=== PATIENT | female | born 1960 | race Caucasian/White ===

== ENCOUNTER 2022-07-13 07:57 | Outpatient (CLI) | payer BC, SELFPAY ==
[2022-07-13 11:23] LABS: Albumin* 4.5 g/dL (3.3-5.0)
[2022-07-13 11:24] LABS: Chloride* 106 mmol/L (96-114); Potassium* 4.6 mmol/L (3.6-5.1); Sodium* 139 mmol/L (135-149)
[2022-07-13 11:26] LABS: Cholesterol* 198 mg/dL (90-199); Creatinine* 1.1 mg/dL (0.5-1.5); Estimated Glomerular Filt Rate 56 ml/min
[2022-07-13 11:27] LABS: Alanine Aminotransferase* 28 U/L (4-35); Alkaline Phosphatase* 80 U/L (40-150); Aspartate Amino Transferase* 42 U/L (12-35); Bilirubin Total* 0.3 mg/dL (0.1-1.5); Blood Urea Nitrogen* 17 mg/dL (7-30); Carbon Dioxide* 27 mmol/L (20-32); Glucose* 101 mg/dL (60-115); Total Protein* 7.2 g/dL (6.0-8.3); Triglycerides* 295 mg/dL (40-149)
[2022-07-13 11:28] LABS: Calcium* 9.1 mg/dL (8.4-10.6); HDL Cholesterol* 33 mg/dL (>=50); LDL Cholesterol Calculated 106 mg/dL (<100)
== END 2022-07-13 07:58 | disposition home or self-care (01) ==
PROVIDERS: PCP Internal Medicine; Visit Provider Internal Medicine
DX: Z01.419 Encounter for gynecological examination (general) (routine) without abnormal findings (principal); E78.5 Hyperlipidemia, unspecified; I10 Essential (primary) hypertension; K76.0 Fatty (change of) liver, not elsewhere classified
CPT/HCPCS: 80053; 80061

== ENCOUNTER 2022-07-24 07:33 | Outpatient (CLI) | payer BC, SELFPAY ==
--- NOTE | 2022-07-24 07:45 | CRLHL7_ITS ---
For Patients: As a result of the Cures Act, medical imaging exams and procedure reports are released immediately into your electronic medical record. You may view this report before your referring provider. If you have questions, please contact your health care provider. LEFT DIAGNOSTIC DIGITAL MAMMOGRAM WITH COMPUTER-AIDED DETECTION AND TOMOSYNTHESIS LEFT BREAST ULTRASOUND CLINICAL HISTORY: LEFT breast nipple discharge. COMPARISON: 12/30/2021, 11/01/2020, 03/18/2019, 02/12/2018. TECHNIQUE: Digital LEFT mammogram in two projections with tomosynthesis and computer-aided detection. Real-time ultrasound imaging of LEFT breast with imaging documentation. BREAST COMPOSITION: There are scattered areas of fibroglandular density. FINDINGS: 3D CC and 3D MLO mammograms LEFT breast submitted. Normal fibroglandular tissue. No suspicious mass or architectural distortion. Benign calcifications. No adenopathy. Targeted LEFT breast ultrasound performed in the retroareolar region. Multiduct ectasia noted without intraductal nodule. No suspicious findings. IMPRESSION: Benign multiduct ectasia LEFT breast retroareolar tissues. No evidence of malignancy or papilloma. RECOMMENDATIONS: Clinical follow-up. Annual bilateral screening mammography. Results and recommendations discussed with the patient. BI-RADS Category 2. Benign A lay language report of this examination will be provided to the patient. Dictated by Will Goldstein MD @ 07/24/2022 9:47:05 AM CRL:[email or web address] DECKER/Dictated by: Will Goldstein MD @ 07/24/2022 9:47:00 AM (Electronically Signed)
--- NOTE | 2022-07-24 08:15 | CRLHL7_ITS ---
For Patients: As a result of the Century Cures Act, medical imaging exams and procedure reports are released immediately into your electronic medical record. You may view this report before your referring provider. If you have questions, please contact your health care provider. PLEASE SEE LEFT DIAGNOSTIC MAMMOGRAM OF SAME DAY FOR COMBINED REPORT. CRL:[email or web address] RD/Dictated by: Will Goldstein MD @ 07/24/2022 9:47:00 AM (Electronically Signed)
== END 2022-07-24 07:34 | disposition home or self-care (01) ==
LOC: MAMMO 07:33
PROVIDERS: PCP Internal Medicine; Visit Provider Internal Medicine
DX: N64.52 Nipple discharge (principal)
CPT/HCPCS: 76642; 77065; G0279

== ENCOUNTER 2023-07-26 07:58 | Outpatient (CLI) | payer BC, SELFPAY ==
--- OUTSIDE RECORDS SUMMARY | 2023-07-26 15:05 | XMS_ITS | Continuity of Care Document ---
Author Name Unknown Organization [facility] Address [address] [place] [address] Phone Care Team Providers Care Painter And Body Work Name Role Phone Mike Reyna MD Unavailable Unavailable Allergies, Adverse Reactions, Alerts Substance Reaction Status Criticality POTASSIUM CLAVULANATE Itching Active No Inf ormation AMOXICILLIN TRIHYDRATE Itching Active No In formation Medications Medication Instructions Dosage Effective Dates (start - stop) Status Comments AMLODIPINE BESILATE (unknown strength) Not Available - Active ATENOLOL (unknown strength) Not Available - Active LISINOPRIL (unknown strength) Not Available - Active OMEPRAZOLE (unknown strength) Not Available - Active CITALOPRAM HBR (unknown strength) Not Available - Active TRAZODONE HCL (unknown strength) Not Available - Active Procedures Procedure Date Postop Followup Visit Cerv Artifical Disk Replacement 015 Office/Outpatient Visit,Est, Mod 2014 Office/Outpatient Visit,[facility], Mod 2014 Advance Directives Directive Yes / No Effective Date File Name No Information Encounters Encounter Description Practice Location Reason(s) For Visit Diagnoses Date Provider Providers Copied on Encounter [facility], [address], [place], [id number] , [place] tel: [phone] [facility] No Information [address] [facility], [address], [place], [id number] , [place]. tel: [phone] [facility], [address], [place], [id number] , [place] tel: [phone] [facility] [place] OverweightArthrod esis status 6 Maribell Mckeon. [facility], [address], [address], [place], [address] , [place]. tel: [phone] Referring Provider: Mikal Vasquez, [facility] [address], [address], [place], [address] . tel:[phone] [facility], [address], [place], [address] , [place] tel: [phone] [facility] No Information 5 Maribell Mckeon. [facility] [place], [address], [address], [place], [place], [id number] , [place]. tel: [phone] Referring Provider: Mikal Vasquez, [facility] [place] [address] [place], [address], [place], [address] . tel:[phone] Office/Outpa tient Visit,Est, Mod [facility], [address], [place], [address] , [place] tel: [phone] [facility] Other cervical disc displacement, mid-cervical region Maribell Mckeon. [facility] [place], [address], [address], [place], [address] , [place]. tel: [phone] Referring Provider: Mikal Vasquez, [facility] [address], [address], [place], [address] . tel:[phone] Office/Outpa tient Visit,New, Mod [facility], [address], [place], [address] , [place] tel: [phone] [facility] Annular fissure of cervical discCervical degenerative disc diseaseSpinal stenosis of cervical region 5 Keshia Ren. [facility] [place], [address], [address], [place], [address] , [place]. tel: [phone] Referring Provider: Mikal Vasquez, [facility] [address] [place] [address], [address], [place], [address] . tel:[phone] Family History Family Member Type Diagnosis Age At Onset Problem (finding) Problem (finding) Problem (finding) Problem (finding) Payers Payer name Insurance type Covered democrat ID Authorrobert anaya(s) [facility] [id number] [facility] [id number] Social History Type Description Quantity Date Captured Comments Sex Female Smoking Status No Information Chief Complaint And Reason For Visit No Information Reason For Referral Reason For Referral No Information History Of Present Illness Encounter Date Complaint History Of Prese nt Illness No Information Functional Status Date Functional Assessmen t No Information Instructions Date Instruction Additional Infor mation Weight Management Education Rela mena to Overweight Weight management: I nstructed to return to General Practitioner timeframe: 1 Month. Related to Overweight Assessments Type Assessment Date No Information Patient Care Teams Name Effective Dates (start - stop) Status Members No Information
== END 2023-07-26 07:59 | disposition home or self-care (01) ==
LOC: NFLDREF 15:03
PROVIDERS: PCP Internal Medicine; Referring Provider Internal Medicine; Visit Provider Internal Medicine
DX: E78.5 Hyperlipidemia, unspecified (principal); I10 Essential (primary) hypertension; R73.03 Prediabetes
CPT/HCPCS: 80053; 80061

== ENCOUNTER 2023-10-17 08:10 | Outpatient (CLI) | payer BC, OTHER, SELFPAY ==
--- OUTSIDE RECORDS SUMMARY | 2023-10-17 08:14 | XMS_ITS | Continuity of Care Document ---
Author Name Unknown Organization [facility] Address [address] [place] [address] Phone Care Team Providers Care Spiral Runner Name Role Phone Mike Reyna MD Unavailable [...] Replacement 015 Office/Outpatient Visit,Est, Mod 2014 Office/Outpatient Visit,[facility], Mod 2014 Advance Directives Directive Yes / No Effective Date File Name No Information Encounters Encounter Description Practice Location Reason(s) For Visit Diagnoses Date Provider Providers Copied on Encounter [facility], [address], [place], [id number] , [place] tel: [phone] [facility] No Information 7 Maribell Mckeon. [facility], [address], [address], [place], [id number] , [place]. tel: [phone] [facility], [address], [place], [id number] , [place] tel: [phone] [facility] [place] OverweightArthrod esis status 6 Maribell Mckeon. [facility], [address], [address], [place], [address] , [place]. tel: [phone] Referring Provider: Mikal Vasquez, [facility] [address], [address], [place], [address] . tel:[phone] [facility], [address], [place], [id number] , [place] tel: [phone] [facility] No Information 5 Maribell Mckeon. [facility] [place], [address], [address], [place], [address] , [place]. tel: [phone] Referring Provider: Mikal Vasquez, [facility] [place] [address] [place], [address], [place], [address] . tel:[phone] Office/Outpa tient Visit,Est, Mod [facility], [address], [place], [address] , [place] tel: [phone] [facility] Other cervical disc displacement, mid-cervical region Maribell Mckeon. [facility] [place], [address], [address], [place], [address] , [place]. tel: [phone] Referring Provider: Mikal Vasquez, [facility] [address], [address], [place], [address] . tel:[phone] Office/Outpa tient Visit,New, Mod [facility], [address], [place], [address] , [place] tel: [phone] [facility] Annular fissure of cervical discCervical degenerative disc diseaseSpinal stenosis of cervical region 5 Keshia Ren. [facility] [place], [address], [address], [place], [address] , [place]. tel: [phone] Referring Provider: Mikal Vasquez, [facility] [address] [place] [address], [address], [place], [address] . tel:[phone] Family History Family Member Type Diagnosis Age At Onset Problem (finding) Problem (finding) Problem (finding) Problem (finding) Payers Payer name Insurance type Covered republican ID Authorrobert anaya(s) [facility] [id number] [facility] [id number] Social History Type Description Quantity Date Captured [...]
--- OUTSIDE RECORDS SUMMARY | 2023-10-17 08:14 | XMS_ITS | Clinical Summary ---
Author Name Unknown Organization [facility] Address [place], [place] [address] Care Team Providers Care Sap Technical Architect Name Role Phone Adelaide Hebert MD Primary Care Provider [phone] Allergies Active Allergy Reactions Criticality Noted Date Comments Amoxicillin-Pot Clavulanate Hives,Itching Low 02/22/2007 Clavulanic Acid Itching Low 07/15/2015 Iodinated Contrast Media Hives,Erythema High 007 Difficulty Breathing, Sneezing Medications Medication Sig Dispensed Refills Start Date End Date Status ALPRAZolam (XANAX) 0.25 mg tabletIndications:An xiety state, unspecified Take by mouth. Take one or two tablets by mouth as needed. 30 tablet 6 05/10/2010 Active furosemide (LASIX) 20 mg tabletIndications:Ed huan Take 0.5-1 tablets by mouth once daily if needed for Other (Specify). Pharmacy- Patient does not need today. 30 tablet 0 05/10/2010 Active lisinopril (PRINIVIL; ZESTRIL) 40 mg tabletIndications:Un specified essential hypertension Take 1 tablet by mouth once daily. 90 tablet 3 05/10/2010 Active omeprazole (PRILOSEC) 20 mg capsuleIndications:R eflux esophagitis,Unspecif ied essential hypertension Take 1 capsule by mouth 2 times daily before meals. 180 capsule 3 05/10/2010 Active citalopram (CELEXA) 40 mg tabletIndications:An xiety state, unspecified,Unspecif ied essential hypertension Take 1 tablet by mouth once daily. Pharmacy- Patient does not need today. 135 tablet 3 12/27/2010 Active traZODone (DESYREL) 50 mg tabletIndications:sl eep Take 1 tablet by mouth at bedtime. Indications: sleep 30 tablet 0 04/13/2011 Active traMADol (ULTRAM) 50 mg tablet Take 50-100 mg by mouth every 6 hours if needed for Pain. 0 Active amLODIPine (NORVASC) 10 mg tablet Take 10 mg by mouth once daily. 0 Active atenolol (TENORMIN) 12.5 mg as half tablet Take 12.5 mg by mouth once daily. 0 Active MULTIVITAMIN (MULTIPLE VITAMIN ORAL) Take 1 Tab by mouth once daily. 0 Active omega-3 fatty acids (FISH OIL) cap Take 1,000 mg by mouth once daily. 0 Active oxyCODONE (ROXICODONE) 5 mg immediate release tabletIndications:HN P (herniated nucleus pulposus), cervical Take 1-2 tablets by mouth every 4 hours if needed for Pain (For moderate pain). 100 tablet 0 07/17/2015 Active diazepam (VALIUM) 2 mg tabletIndications:HN P (herniated nucleus pulposus), cervical Take 1 tablet by mouth every 6 hours if needed for Muscle Spasm. 20 tablet 0 07/17/2015 Active sennosides-docusate, 8.6-50 mg, (SENOKOT S) 8.6-50 mg tabletIndications:HN P (herniated nucleus pulposus), cervical Take 2 tablets by mouth 2 times daily. 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 Migraine, unspecified, witho ut mention of intractable migraine without mention of status migrainosus 01/01/2007 Anxiety state, unspecified 01/01/2007 Reflux esophagitis 01/01/2007 Unspecified essential hypertension 01/01/2007 Immunizations Name Administration Dates Next Due Influenza, IIV3 (Age >=3 years) 06/06/2010,06/23 Td (Age >=7 Years) 11/17/1999 Family History Medical History Relation Name Comments Cancer Brother d 45 yo lung CA Hypertension Brother Diabetes Father b 1927 Hypertension Father Hypertension Mother b 1930 Stroke Mother 71 yo Relation Name Status Comments Brother Father Mother Social History Tobacco Use Types Packs/Day Years Used Date Smoking Tobacco: Never Smokeless Tobacco: Never Tobacco Cessation:Counseling Given: Yes Alcohol Use Standard Drinks/Week Comments No 0 (1 standard drink = 0.6 oz pur e alcohol) Social Connections Answer Date Recorded Frequency of Communication with Friends and Fami ly Not on file 08/27/2021 Financial Resource Strain Answer Date R ecorded Difficulty of Paying Living Expenses Not on file 08/27/2021 Difficulty of Paying Living Expenses Not on file 08/27/2021 Sex and Gender Information Value Date Recorded Sex Assigned at Not on file Gender Identity Not on file Sexual Orientation Not on file Obstetrics History Para Term AB IAB SAB Ectopic Multiple Livin g Live Births 3 3 Date Outcome GA Total Labor Labor/2nd/3rd Weight Sex Delivery Anes PTL Demetria A1 A5 Name Cl in Last Filed Vital Signs Vital Sign Reading Time Taken Comments Blood Pressure 110/72 07/17/2015 7:41 AM CONVEYOR TENDER Pulse 99 07/17/2015 7:41 AM CONVEYOR TENDER Temperature 36.8 ??C (98.3 ??F) 07/17/2015 7:41 AM CS T Respiratory Rate 16 07/17/2015 7:41 AM CONVEYOR TENDER Oxygen Saturation 92% 07/17/2015 7:41 AM CONVEYOR TENDER Inhaled Oxygen Concentration - - Weight 78.3 kg (172 lb 9.9 oz) 07/16/2015 8:28 A M CONVEYOR TENDER Height 159 cm (5' 2.6) 07/16/2015 8:28 AM CONVEYOR TENDER Body Mass Index 30.97 07/16/2015 8:28 AM CONVEYOR TENDER Plan of Treatment Health Maintenance Due Date Last Done Comments COVID-19 vaccine series (#1) 1959 Tdap 1970 Depression screening for age 12+ 1971 HIV for age 15-65 1974 BMI (ht and wt on same day) for age 18+ 1977 Hepatitis C screening for age 18-79 1977 Zoster (shingles) series for age 50+ (1 of 2) 2009 Tetanus booster 11/16/2009 11/17/1999, 11/17/1999 Mammogram for age 45-75 05/10/2011 05/10/20 10, 04/08/2009, 02/19/2007 Lipids for age 45-75 11/30/2015 11/29/2010, 05/10/2010, 05/10/2009, Additional history exists Colonoscopy through age 75 12/31/2017 01/01/2008 Influenza for age 50-64 04/27/2023 06/06/2010, 06/23 Pap test for age 21-65 07/18/2025 , 07/18/2022, 02/04/2018, Additional history exists Pneumococcal series for age 6-64 Aged Out No longer eligible based on patient's age to complete this topic Medical Devices Implanted Type Area Hazard Waste Handler Device Identifier Shelf Expiration Date Model / Serial / Lot Disc Cerv 15mm Jose [facility] - [id number] Implanted:Qty: 1 on 07/16/2015 by Mike Reyna MD at [employer] N/A: Spine [employer] Spine/[employer]tho [id number] / / [id number] Cutr Cerv 15mm Jose - [id number] Implanted:Qty: 1 on 07/16/2015 by Mike Reyna MD at [employer] N/A: Spine [employer] Spine/[employer]tho [id number] / / [id number] Advance Directives Latest Code Status on File Code Status Date Activated Date Inactivated Comments Full Code 07/16/2015 2:32 PM 07/17/2015 4:03 PM Code Status History Code Status Date Activated Date Inactivated Comments Full Code 07/16/2015 8:09 AM 07/16/2015 2:32 PM Care Teams Sap Technical Architect Relationship Specialty Start Date End Date Adelaide Hebert MD [address] [place] [address] PCP - General Internal Medicine 07/14/15
--- NOTE | 2023-10-17 08:15 | MM_ITS ---
Patient: ENRIQUE TAYLOR Facility:?[facility] Patient ID:?[id number] Site Patient ID:?[id number]. Site :?1960 Study:?XRay-Breast Bilateral 3D W/CAD-10/17/2023 8:34:26 AM Ordering Physician:Adelaide Brewster Final Report: BILATERAL SCREENING MAMMOGRAM WITH COMPUTER-AIDED DETECTION AND TOMOSYNTHESIS TECHNIQUE: CC and MLO views were obtained. These mammographic images have been obtained using full-field digital technique. These mammographic images were interpreted with the benefit of computer-aided detection. Breast Tomosynthesis was used in this interpretation. COMPARISON FILM: 07/24/22, 12/30/21, 11/01/20. FINDINGS: There are scattered areas of fibroglandular density. IMPRESSION: There is no radiographic evidence for malignancy. ASSESSMENT: BI-RADS Category 2: Benign RECOMMENDATION: Routine screening mammogram in 1 year. A lay language report of this examination will be provided to the patient. Norman Scott M.D. Diagnostic/Nuclear Medicine Radiologist [email or web address] CYNTHIA/toya R& Transcribed: 2:04 pm SP/Dictated by: Norman Scott MD @ 10/18/2023 10:41:00 AM Signed by:Carin Scott MD @10/18/2023 3:31:33 PM (Electronic Signature)
== END 2023-10-17 08:11 | disposition home or self-care (01) ==
LOC: MAMMO 08:11
PROVIDERS: PCP Internal Medicine; Visit Provider Internal Medicine
DX: Z12.31 Encounter for screening mammogram for malignant neoplasm of breast (principal)
CPT/HCPCS: 77063; 77067

== ENCOUNTER 2024-07-30 07:39 | Outpatient (CLI) | payer MEDICARE, BC, SELFPAY ==
--- OUTSIDE RECORDS SUMMARY | 2024-08-03 08:34 | XMS_ITS | Continuity of Care Document ---
Author Organization [facility] Address [address] [place] [address] Phone Care Team Providers Care Pharmacist'S Aide Name Role Phone Mike Reyna MD Unavailable Unavailable Allergies, Adverse Reactions, Alerts Substance Reaction Status Criticality POTASSIUM CLAVULANATE Itching Active No Inf ormation AMOXICILLIN TRIHYDRATE Itching Active No In formation Medications Medication Instructions Dosage Effective Dates (start - stop) Status Comments TRAZODONE HCL (unknown strength) Not Available - Active CITALOPRAM HBR (unknown strength) Not Available - Active OMEPRAZOLE (unknown strength) Not Available - Active LISINOPRIL (unknown strength) Not Available - Active ATENOLOL (unknown strength) Not Available - Active AMLODIPINE BESILATE (unknown strength) Not Available - Active Procedures Procedure Date Postop Followup Visit Cerv Artifical Disk Replacement 015 Office/Outpatient Visit,Est, Mod 2014 Office/Outpatient Visit,New, Mod 2014 Advance Directives Directive Yes / No Effective Date File Name No Information Encounters Encounter Description Practice Location Reason(s) For Visit Diagnoses Date Provider Providers Copied on Encounter [facility], [address], [place], [id number] , [place] tel: [phone] [facility] No Information 7 Maribell Mckeon. [facility], [address], [address], [place], [id number] , [place]. tel: [phone] [facility], [address], [place], [id number] , [place] tel:[phone] [facility] [place] OverweightArthrod esis status Maribell Mckeon. [facility], [address], [address], [place], [place], [address] , [place]. tel: [phone] Referring Provider: Mikal Vasquez, [facility] [address], [address], [place], [address] . tel:[phone] [facility], [address], [place], [address] , [place] tel: [phone] [facility] No Information Maribell Mckeon. [facility] [place], [address], [address], [place], [place], [address] , [place]. tel: [phone] Referring Provider: Mikal Vasquez, [facility] [address] [place], [address], [place], [address] . tel:[phone] Office/Outpa tient Visit,Est, Mod [facility], [address], [place], [address] , [place] tel: [phone] [facility] Other cervical disc displacement, mid-cervical region Maribell Mckeon. [facility], [address], [address], [place], [place], [address] , [place]. tel: [phone] Referring Provider: Mikal Vasquez, [facility] [address], [place], [address] . tel:[phone] Office/Outpa tient Visit,New, Mod [facility], [address], [place], [address] , [place] tel: [phone] [facility] Annular fissure of cervical discCervical degenerative disc diseaseSpinal stenosis of cervical region 5 Keshia Ren. [facility] [place], [address], [address], [place], [address] , [place]. tel: [phone] Referring Provider: iMkal Vasquez, [facility] [address] [place] [address], [address], [place], [address] . tel:[phone] Family History Family Member Type Diagnosis Age At Onset Problem (finding) Problem (finding) Problem (finding) Problem (finding) Payers Payer name Insurance type Covered constitution party ID Hector anaya(s) [facility] [id number] [facility] [id number] Social History Type Description Quantity Date Captured Comments Sex Female Smoking Status No Information Chief Complaint And Reason For Visit No Information Reason For Referral Reason For Referral No Information History Of Present Illness Encounter Date Complaint History Of Prese nt Illness No Information Functional Status Date Functional Assessmen t No Information Instructions Date Instruction Additional Infor candido Weight management: I nstructed to return to General Practitioner timeframe: 1 Month. Related to Overweight Weight Management Education Rela mena to Overweight Assessments Type Assessment Date No Information Patient Care Teams Name Effective Dates (start - stop) Status Members No Information
--- OUTSIDE RECORDS SUMMARY | 2024-08-03 08:34 | XMS_ITS | Clinical Summary ---
Author Organization [facility] Address [place], [place] [address] Care Team Providers Care Voice Systems Engineer Name Role Phone Adelaide Hebert MD Primary Care Provider [phone] Allergies Active Allergy Reactions Criticality Noted Date Comments Amoxicillin-Pot Clavulanate Hives,Itching Low 02/22/2007 Clavulanic Acid Itching Low 07/15/2015 Iodinated Contrast Media Hives,Erythema High 007 Difficulty Breathing, Sneezing Medications ALPRAZolam (XANAX) 0.25 mg tabletIndications :Anxiety state, unspecified Take by mouth. Take one or two tablets by mouth as needed. 30 tablet 6 0 Active furosemide (LASIX) 20 mg tabletIndications :Edema Take 0.5-1 tablets by mouth once daily if needed for Other (Specify). Pharmacy- Patient does not need today. 30 tablet 0 0 Active lisinopril (PRINIVIL; ZESTRIL) 40 mg tabletIndications :Unspecified essential hypertension Take 1 tablet by mouth once daily. 90 tablet 3 0 Active omeprazole (PRILOSEC) 20 mg capsuleIndication s:Reflux esophagitis,Unspe cified essential hypertension Take 1 capsule by mouth 2 times daily before meals. 180 capsule 3 0 Active citalopram (CELEXA) 40 mg tabletIndications :Anxiety state, unspecified,Unspe cified essential hypertension Take 1 tablet by mouth once daily. Pharmacy- Patient does not need today. 135 tablet 3 1 Active traZODone (DESYREL) 50 mg tabletIndications :sleep Take 1 tablet by mouth at bedtime. Indications: sleep 30 tablet 0 1 Active traMADol (ULTRAM) 50 mg tablet Take 50-100 mg by mouth every 6 hours if needed for Pain. Active amLODIPine (NORVASC) 10 mg tablet Take 10 mg by mouth once daily. Active atenolol (TENORMIN) 12.5 mg as half tablet Take 12.5 mg by mouth once daily. Active MULTIVITAMIN (MULTIPLE VITAMIN ORAL) Take 1 Tab by mouth once daily. Active omega-3 fatty acids (FISH OIL) cap Take 1,000 mg by mouth once daily. Active oxyCODONE (ROXICODONE) 5 mg immediate release tabletIndications :HNP (herniated nucleus pulposus), cervical Take 1-2 tablets by mouth every 4 hours if needed for Pain (For moderate pain). 100 tablet 07/17/2015 12:45 PM PRODUCE SERVICE TEAM MEMBER 5 Active diazepam (VALIUM) 2 mg tabletIndications :HNP (herniated nucleus pulposus), cervical Take 1 tablet by mouth every 6 hours if needed for Muscle Spasm. 20 tablet 07/17/2015 12:45 PM [employer]ODUCE SERVICE TEAM MEMBER 5 Active sennosides-docusa te, 8.6-50 mg, (SENOKOT S) 8.6-50 mg tabletIndications :HNP (herniated nucleus pulposus), cervical Take 2 tablets by mouth 2 times daily. 100 tablet 07/17/2015 12:45 PM PRODUCE SERVICE TEAM MEMBER 5 Active Active Problems Problem Noted Date Diagnosed Date HNP (herniated nucleus pulposus), cervical 07/16 Jerking 07/05/2010 Symptomatic menopausal or female climacteric sta amrik 04/08/2009 Rosacea 03/10/2008 Pure hyperglyceridemia 03/01/2007 Tension headache 02/22/2007 Allergic rhinitis, cause unspecified 02/22/2007 Obesity, unspecified 02/22/2007 Overview (02/22/2007): BMI 32 Benign neoplasm of pituitary gland [...] Paying Living Expenses Not on file 08/27/2021 Comments No Sex and Gender Information Value Date Recorded Sex Assigned at Not on file Legal Sex Female 5:24 AM PRODUCE SERVICE TEAM MEMBER Gender Identity Not on file Sexual Orientation Not on file Obstetrics History Para Term AB IAB SAB Ectopic Multiple Livin g Live Births 3 3 Date Outcome GA Total Labor Labor/2nd/3rd Weight Sex Type Anes PTL Demetria A1 A5 Name Clin Last Filed Vital Signs Vital Sign Reading Time Taken Comments Blood Pressure 110/72 07/17/2015 7:41 AM [employer]ODUCE SERVICE TEAM MEMBER Pulse 99 07/17/2015 7:41 AM [employer]ODUCE SERVICE TEAM MEMBER Temperature 36.8 C (98.3 F) 07/17/2015 7:41 AM PRODUCE SERVICE TEAM MEMBER Respiratory Rate 16 07/17/2015 7:41 AM PRODUCE SERVICE TEAM MEMBER Oxygen Saturation 92% 07/17/2015 7:41 AM PRODUCE SERVICE TEAM MEMBER Inhaled Oxygen Concentration - - Weight 78.3 kg (172 lb 9.9 oz) 07/16/2015 8:28 A M [employer]CE [employer]ICE TEAM MEMBER Height 159 cm (5' 2.6) 07/16/2015 8:28 AM PRODUCE SERVICE TEAM MEMBER Body Mass Index 30.97 07/16/2015 8:28 AM PRODUCE SERVICE TEAM MEMBER Plan of Treatment Health Maintenance Due Date Last Done Comments Tdap 1970 Depression screening for age 12+ 1971 HIV for age 15-65 1974 BMI (ht and wt on same day) for age 18+ 1977 Hepatitis C screening for ag e 18-79 1977 Zoster (shingles) series for age 50+ (1 of 2) 2009 Tetanus booster 11/16/2009 11/17/1999, 11/17/1999 Mammogram for age 45-75 05/10/2011 05/10/20 10, 04/08/2009, 02/19/2007 Lipids for age 45-75 11/30/2015 11/29/2010, 05/10/2010, 05/10/2009, Additional history exists Colonoscopy through age 75 12/31/2017 01/01/2008 DEXA/DXA scan for age 65+ 2024 Pneumococcal series for age 65+ (1 of 1 - PCV) 2024 COVID-19 vaccine series ( - 2023- season) 2024 Influenza for age 65+ 04/27/2024 06/06/2010, 008 Pap test for age 21-65 07/18/2025 2, 07/18/2022, 02/04/2018, Additional history exists Medical Devices Implanted Type Area Aircraft Powerplant Repairer Device Identifier Shelf Expiration Date Model / Serial / Lot Disc Cerv 15mm Jose [facility] - [id number] Implanted:Qty: 1 on 07/16/2015 by Mike Reyna MD at [facility] N/A: Spine [employer] Spine/Ortho [id number] / / [id number] Cutr Cerv 15mm Jose - [id number] Implanted:Qty: 1 on 07/16/2015 by Mike Reyna MD at [facility] N/A: Spine [employer] Spine/Ortho [id number] / / [id number] Procedures Procedure Name Priority Date/Time Associated Diagnosis Comments HPV HIGH RISK Routine 07/18/2022 8:30 AM PRODUCE SERVICE TEAM MEMBER LIPID PANEL Routine 11/29/2010 4:37 PM CDT HYPERTRIGLYCERIDEMI A XR MAMMO BILAT SCREEN FFDM (IA) Routine 05/10/2010 10:48 AM CDT Other screening mammogram from Last 3 Months or Most Recently Relevant to Health Maintenance Results * HPV HIGH RISK (07/18/2022 8:30 AM PRODUCE SERVICE TEAM MEMBER) TYPE 16 Negative Negative 07/24/2022 2:59 PM PRODUCE SERVICE TEAM MEMBER [facility] TYPE 18 Negative Negative 07/24/2022 2:59 PM PRODUCE SERVICE TEAM MEMBER [facility] OTHER HIGH RISK TYPES Negative Negative 07/24/2022 2:59 PM PRODUCE SERVICE TEAM MEMBER [facility] Other (Cervical) 07/18/2022 8:30 AM PRODUCE SERVICE TEAM MEMBER 07/19/2022 9:02 AM PRODUCE SERVICE TEAM MEMBER Narrative [facility] - 07/24/2022 2:59 PM PRODUCE SERVICE TEAM MEMBER HPV types 16, 18, 31, 33, 35, 39, 45, 51, 52, 56, 58, 59, 66 and 68 DNA were undetectable or below the pre-set threshold. Methodology: Karlos Apolinar 4800 HPV Test us Adelaide Hebert MD MICROBIOLOGY Final Resu lt [facility] [address] [place] [address], * (ABNORMAL) LIPID (11/29/2010 4:37 PM CDT) CHOLESTEROL,TOTAL 201(H) 110 - 199 mg/dL [facility] TRIGLYCERIDES 181(H) <150 mg/dL [facility] HDL CHOLESTEROL 40(L) >40 mg/dL [facility] CHOL/HDL RATIO 5.03(H) <4.51 [facility] LDL CHOLESTEROL 125 <131 mg/dL [facility] PATIENT STATUS Fasting [facility] Blood specimen (specimen) BLOOD SPECIMEN / Unknown 11/29/2010 4:37 PM CDT 11/29/2010 4:36 PM CDT Kirstin Gilmore NP CHEMISTRY Final Result [facility] [address] [place] [address] * XR MAMMO BILAT SCREEN FFDM (05/10/2010 10:48 AM CDT) Anatomical Region Laterality Modality BREASTS, Breast Left, Breast Right Bilateral Mammography Impressions 05/10/2010 12:29 PM CDT There is no radiographic evidence for malignancy. Recommend annual mammograms. A lay language report of this examination will be provided to the patient. MAMMOGRAM ASSESSMENT: ACR 2 Benign Narrative 05/10/2010 12:29 PM CDT XR MAMMO BILAT SCREEN FFDM [G0202.0] CLINICAL HISTORY: This is an asymptomatic 50 y.o. patient. INDICATION FOR EXAM: Mammogram Screening. TECHNIQUE: CC & MLO views were obtained. This digital study was evaluated with the assistance of Computer-Aided Detection. COMPARISON FILMS: Yes 04/08/09 [facility] 02/19/07 [facility] FINDINGS: Mammographically, the breast tissue is heterogeneously dense, which could obscure detection of small masses (approximately 51% - 75% glandular). No suspicious masses or microcalcifications. Benign appearing calcifications within both breasts and Benign appearing mass(es) within both breasts. Procedure Note Miguel Angel Machado, DO - 05/10/2010 XR MAMMO BILAT SCREEN FFDM [G0202.0] CLINICAL HISTORY: This is an asymptomatic 50 y.o. patient. INDICATION FOR EXAM: Mammogram Screening. TECHNIQUE: CC & MLO views were obtained. This digital study was evaluatedwith the assistance of Computer-Aided Detection. COMPARISON FILMS: Yes 04/08/09 [facility] 02/19/07 [facility] FINDINGS: Mammographically, the breast tissue is heterogeneously dense,which could obscure detection of small masses (approximately 51% - 75%glandular). No suspicious masses or microcalcifications. Benignappearing calcifications within both breasts and Benign appearing mass(es)within both breasts. IMPRESSION: There is no radiographic evidence for malignancy. Recommendannual mammograms. A lay language report of this examination will be provided to the patient. MAMMOGRAM ASSESSMENT: ACR 2 Benign Kirstin Gilmore NP MAMMO Final Result from Last 3 Months or Most Recently Relevant to Health Maintenance Insurance [facility] Advance Directives * Full Code (Latest Code Status on File) Date Activated Date Inactivated Comments 07/16/2015 2:32 PM 07/17/2015 4:03 PM * Full Code Date Activated Date Inactivated Comments 07/16/2015 8:09 AM 07/16/2015 2:32 PM Care Teams Voice Systems Engineer Relationship Specialty Start Date End Date Adelaide Hebert MD [address] [place], [place] [id number] PCP - General Internal Medicine 07/14/15
== END 2024-07-30 07:40 | disposition home or self-care (01) ==
LOC: NFLDREF 08-03 08:32
PROVIDERS: PCP Internal Medicine; Referring Provider Internal Medicine; Visit Provider Internal Medicine
DX: I10 Essential (primary) hypertension (principal); E78.5 Hyperlipidemia, unspecified; R73.03 Prediabetes
CPT/HCPCS: 80053; 80061

== ENCOUNTER 2024-09-04 15:11 | Outpatient (CLI) | payer MEDICARE, BC, SELFPAY ==
--- NOTE | 2024-09-04 15:30 | CRLHL7_ITS ---
For Patients: As a result of the Century Cures Act, medical imaging exams and procedure reports are released immediately into your electronic medical record. You may view this report before your referring provider. If you have questions, please contact your health care provider. XR DXA Bone Mineral Density (BMD) Reason for exam: Osteoporosis. Current height (in): 62. Weight (lb): 180. Menopause age: 44. Ethnicity: White. 1. Have you had a previous hip or vertebral fracture? No. 2. Have you had any fractures during your adult life which did not result from significant trauma (e.g., auto accident)? No. 3. Did either of your parents have a hip fracture? No. 4. Do you smoke? No. 5. Have you ever taken Glucocorticoids? No. 6. Do you have rheumatoid arthritis? No. 7. Do you have secondary osteoporosis? No. 8. Do you drink 3 or more alcoholic drinks per day? No. 9. Are you being treated for osteoporosis? No. 10. Have you ever taken any of the following medications: Actonel, Evista, Fosamax, Miacalcin, Reclast, Boniva, Forteo, HRT (i.e., estrogen/hormone therapy), Protelos, Prolia, Vitamin D, Calcium, other ??? please specify. ANSWER: No. 11. Do you have any of the following medical conditions: Anorexia or bulimia, asthma or emphysema, end stage renal disease, hyperparathyroidism, any seizure disorders, cancer, inflammatory bowel diseases, hysterectomy, other ??? please specify. ANSWER: No. 12. What was your maximum height (inches)? 62.5. 13. Do you perform weight bearing exercise regularly? No. 14. Do you regularly consume dairy products? No. 15. Do you drink caffeinated beverages? Yes. 16. At what age did your period start? 9. 17. Are you premenopausal? No. 18. How many full-term pregnancies have you had? 3. 19. Have you ever missed your period for more than 6 months in a row (not including or menopause)? No. TECHNIQUE: Bone mineral density study was performed using the [employer]. FINDINGS: The results of the study expressed as bone mineral density (BMD) are as follows: Lumbar spine L1 to L4: BMD: 1.063 g/cm2. T-score: 0.1. Z-score: 1.9 Neck Left: BMD: 0.985 g/cm2. T-score: 1.2. Z-score: 2.7 Right: BMD: 0.976 g/cm2. T-score: 1.1. Z-score: 2.7 Total Left: BMD: 1.080 g/cm2. T-score: 1.1. Z-score: 2.4 Right: BMD: 1.028 g/cm2. T-score: 0.7. Z-score: 1.9 IMPRESSION: Normal bone density. *Comparison exams done prior to 01/2020 were performed on different unit, [facility]. Will Goldstein M.D. Diagnostic Radiologist [email or web address] SARAH/oliva baptiste/Dictated by: Will Goldstein MD @ 09/05/2024 7:17:00 AM (Electronically Signed)
== END 2024-09-04 15:12 | disposition home or self-care (01) ==
LOC: RAD 15:13
PROVIDERS: PCP Internal Medicine; Visit Provider Internal Medicine
DX: M81.0 Age-related osteoporosis without current pathological fracture (principal)
CPT/HCPCS: 77080

== ENCOUNTER 2024-09-08 08:26 | Outpatient (CLI) | payer MEDICARE, BC, SELFPAY ==
--- NOTE | 2024-09-08 08:45 | CRLHL7_ITS ---
For Patients: As a result of the Cures Act, medical imaging exams and procedure reports are released immediately into your electronic medical record. You may view this report before your referring provider. If you have questions, please contact your health care provider. DIGITAL DIAGNOSTIC BILATERAL MAMMOGRAM WITH COMPUTER-AIDED DETECTION AND TOMOSYNTHESIS, 09/08/2024 CLINICAL HISTORY: LEFT breast nipple discharge. COMPARISON: 10/17/23, 07/24/22 (LEFT only), 12/30/21. TECHNIQUE: Digital BILATERAL mammogram in 4 projections with computer-aided detection. Tomosynthesis was used in this interpretation. Real-time ultrasound imaging of LEFT breast with imaging documentation. BREAST COMPOSITION: There are scattered areas of fibroglandular density. FINDINGS: 3D CC/MLO BILATERAL mammogram images submitted. No suspicious mass or architectural distortion. No suspicious calcifications or adenopathy. Targeted LEFT breast ultrasound performed in the retroareolar region. 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 No intraductal nodule. No abnormal vascularity. No suspicious mass. 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 No evidence of malignancy. RECOMMENDATIONS: Clinical follow-up. A lay language report of this examination will be provided to the patient. BI-RADS Category 2. Benign Dictated by Will Goldstein MD @ 09/08/2024 9:43:45 AM ALAINA/phyllis DW/Dictated by: Will Goldstein MD @ 09/08/2024 9:43:00 AM (Electronically Signed)
--- NOTE | 2024-09-08 09:15 | CRLHL7_ITS ---
For Patients: As a result of the Century Cures Act, medical imaging exams and procedure reports are released immediately into your electronic medical record. You may view this report before your referring provider. If you have questions, please contact your health care provider. PLEASE SEE BILATERAL BREAST DIAGNOSTIC MAMMOGRAM PERFORMED SAME DAY. CRL:sp SP/Dictated by: Will Goldstein MD @ 09/08/2024 9:46:00 AM (Electronically Signed)
== END 2024-09-08 08:27 | disposition home or self-care (01) ==
LOC: MAMMO 08:27
PROVIDERS: PCP Internal Medicine; Visit Provider Surgery
DX: N64.52 Nipple discharge (principal)
CPT/HCPCS: 76642; 77066; G0279

== ENCOUNTER 2024-10-09 07:56 | Day surgery (SDC) | payer MEDICARE, BC, SELFPAY ==
--- OUTSIDE RECORDS SUMMARY | 2024-10-09 07:59 | XMS_ITS | Continuity of Care Document ---
Author Organization [facility] Address [address] [place] [address] Phone Care Team Providers Care Logistics Center Manager Name Role Phone Mike Reyna MD Unavailable [...] Copied on Encounter [facility], [address], [place], [id number] , [place] tel: [phone] [facility] No Information 7 Maribell Mckeon. [facility], [address], [address], [place], [id number] , [place]. tel: [phone] [facility], [address], [place], [id number] , [place] tel:[phone] [facility] - Kerrick OverweightArthrod esis status Maribell Mckeon. [facility], [address], [address], [place], [place], [id number] , [place]. tel: [phone] Referring Provider: Mikal Vasquez, [facility] [address], [address], [place], [address] . tel:[phone] [facility], [address], [place], [place], [id number] , [place] tel: [phone] [facility] No Information Maribell Mckeon. [facility], [address], [address], [place], [place], [id number] , [place]. tel: [phone] Referring Provider: Mikal Vasquez, [facility] [address] [place], [address], [place], [address] . tel:[phone] Office/Outpa tient Visit,Est, Mod [facility], [address], [place], [place], [id number] , [place] tel: [phone] [facility] Other cervical disc displacement, mid-cervical region Maribell Mckeon. [facility], [address], [address], [place], [place], [id number] , [place]. tel: [phone] Referring Provider: Mikal Vasquez, [facility] [address], [address], [place], [address] . tel:[phone] Office/Outpa tient Visit,New, Mod [facility], [address], [place], [place], [id number] , [place] tel: [phone] [facility] Annular fissure of cervical discCervical degenerative disc diseaseSpinal stenosis of cervical region 5 Keshia Ren. [facility] [place], [address], [address], [place], [place], [id number] , [place]. tel: [phone] Referring Provider: Mikal Vasquez, [facility] [address] [place] [address], [address], [place], [address] . tel:[phone] Family History Family Member Type Diagnosis Age At Onset Problem (finding) Problem (finding) Problem (finding) Problem (finding) Payers Payer name Insurance type Covered republican ID Hector anaya(s) [facility] [id number] [facility] [id number] Social History Type Description Quantity Date Captured [...]
--- OUTSIDE RECORDS SUMMARY | 2024-10-09 07:59 | XMS_ITS | Clinical Summary ---
Author Organization [employer] [facility] [employer] [facility] Address [place], [place] [address] Care Team Providers Care Dental Appliance Repairer Name Role Phone Adelaide Hebert MD Primary Care Provider [phone] Allergies Active Allergy Reactions Criticality Noted Date [...] moderate pain). 100 tablet 07/17/2015 12:45 PM LANDS RESOURCE MANAGER 5 Active diazepam (VALIUM) 2 mg tabletIndications :HNP (herniated nucleus pulposus), cervical Take 1 tablet by mouth every 6 hours if needed for Muscle Spasm. 20 tablet 07/17/2015 12:45 PM LANDS RESOURCE MANAGER 5 Active sennosides-docusa te, 8.6-50 mg, (SENOKOT S) 8.6-50 mg tabletIndications :HNP (herniated nucleus pulposus), cervical Take 2 tablets by mouth 2 times daily. 100 tablet 07/17/2015 12:45 PM LANDS RESOURCE MANAGER 5 Active Active Problems Problem Noted Date [...] on file Legal Sex Female 5:24 AM LANDS RESOURCE MANAGER Gender Identity Not on file Sexual Orientation Not on file Obstetrics History Para Term AB IAB SAB Ectopic Multiple Livin g Live Births 3 3 Date Outcome GA Total Labor Labor/2nd/3rd Weight Sex Type Anes PTL Demetria A1 A5 Name Clin Last Filed Vital Signs Vital Sign Reading Time Taken Comments Blood Pressure 110/72 07/17/2015 7:41 AM LANDS RESOURCE MANAGER Pulse 99 07/17/2015 7:41 AM LANDS RESOURCE MANAGER Temperature 36.8 C (98.3 F) 07/17/2015 7:41 AM LANDS RESOURCE MANAGER Respiratory Rate 16 07/17/2015 7:41 AM LANDS RESOURCE MANAGER Oxygen Saturation 92% 07/17/2015 7:41 AM LANDS RESOURCE MANAGER Inhaled Oxygen Concentration - - Weight 78.3 kg (172 lb 9.9 oz) 07/16/2015 8:28 A M LANDS RESOURCE MANAGER Height 159 cm (5' 2.6) 07/16/2015 8:28 AM LANDS RESOURCE MANAGER Body Mass Index 30.97 07/16/2015 8:28 AM LANDS RESOURCE MANAGER Plan of Treatment Health Maintenance Due Date Last Done Comments Tdap 1970 Depression screening for age 12+ 1971 HIV for age 15-65 1974 BMI (ht and wt on same day) for age 18+ 1977 Hepatitis C screening for ag e 18-79 1977 Pneumococcal series for age 50+ (1 of 1 - PCV) 2009 Zoster (shingles) series for age 50+ (1 of 2) 2009 Tetanus booster 11/16/2009 11/17/1999, 11/17/1999 Mammogram for age 45-75 05/10/2011 05/10/20 10, 04/08/2009, 02/19/2007 Lipids for age 45-75 11/30/2015 11/29/2010, 05/10/2010, 05/10/2009, Additional history exists Colonoscopy through age 75 12/31/2017 01/01/2008 DEXA/DXA scan for age 65+ 2024 COVID-19 vaccine series ( - 2023- season) 2024 Influenza for age 65+ 04/27/2024 06/06/2010, 008 Pap test for age 21-65 07/18/2025 , 07/18/2022, 02/04/2018, Additional history exists RSV vaccine for adults or (1 - 1-dose 75+ series) 2034 Medical Devices Implanted Type Area Cable Worker Helper Device Identifier Shelf Expiration Date Model / Serial / Lot Disc Cerv 15mm Jose Valenzuelaca - [id number] Implanted:Qty: 1 on 07/16/2015 by Mike Reyna MD at [facility] N/A: Spine [employer] Spine/Ortho [id number] / / [id number] Cutr Cerv 15mm Jose - [id number] Implanted:Qty: 1 on 07/16/2015 by Mike Reyna MD at [facility] N/A: Spine [employer] Spine/Ortho [id number] / / [id number] Procedures Procedure Name Priority Date/Time Associated Diagnosis Comments HPV HIGH RISK Routine 07/18/2022 8:30 AM LANDS RESOURCE MANAGER LIPID PANEL Routine 11/29/2010 4:37 PM CDT HYPERTRIGLYCERIDEMI A XR MAMMO BILAT SCREEN FFDM (IA) Routine 05/10/2010 10:48 AM CDT Other screening mammogram from Last 3 Months or Most Recently Relevant to Health Maintenance Results * HPV HIGH RISK (07/18/2022 8:30 AM LANDS RESOURCE MANAGER) TYPE 16 Negative Negative 07/24/2022 2:59 PM LANDS RESOURCE MANAGER [facility] TYPE 18 Negative Negative 07/24/2022 2:59 PM LANDS RESOURCE MANAGER [facility] OTHER HIGH RISK TYPES Negative Negative 07/24/2022 2:59 PM LANDS RESOURCE MANAGER [facility] Other (Cervical) 07/18/2022 8:30 AM LANDS RESOURCE MANAGER 07/19/2022 9:02 AM LANDS RESOURCE MANAGER Narrative [facility] - 07/24/2022 2:59 PM LANDS RESOURCE MANAGER HPV types 16, 18, 31, 33, 35, 39, 45, 51, 52, 56, 58, 59, 66 and 68 DNA were undetectable or below the pre-set threshold. Methodology: Karlos Apolinar 4800 HPV Test Adelaide Hebert MD MICROBIOLOGY Final Resu lt [facility] [address] [place] [address], * (ABNORMAL) LIPID (11/29/2010 4:37 PM CDT) CHOLESTEROL,TOTAL 201(H) 110 - 199 mg/dL [facility] TRIGLYCERIDES 181(H) <150 mg/dL [facility] HDL CHOLESTEROL 40(L) >40 mg/dL [facility] CHOL/HDL RATIO 5.03(H) <4.51 [facility] LDL CHOLESTEROL 125 <131 mg/dL [facility] PATIENT STATUS Fasting [facility] Blood specimen (specimen) BLOOD SPECIMEN / Unknown 11/29/2010 4:37 PM CDT 11/29/2010 4:36 PM CDT Kirstin Gilmore NP CHEMISTRY Final Result [facility] [address] [place] [address] * XR MAMMO BILAT SCREEN FFDM (05/10/2010 [...] of Computer-Aided Detection. COMPARISON FILMS: Yes 04/08/09 [facility] 02/19/07 [facility] FINDINGS: Mammographically, the breast tissue is heterogeneously dense, which could obscure detection of small masses (approximately 51% - 75% glandular). No suspicious masses or microcalcifications. Benign appearing calcifications within both breasts and Benign appearing mass(es) within both breasts. Procedure Note Miguel Angel Machado, - 05/10/2010 XR MAMMO BILAT SCREEN FFDM [G0202.0] CLINICAL HISTORY: This is an asymptomatic 50 y.o. patient. INDICATION FOR EXAM: Mammogram Screening. TECHNIQUE: CC & MLO views were obtained. This digital study was evaluatedwith the assistance of Computer-Aided Detection. COMPARISON FILMS: Yes 04/08/09 [facility] 02/19/07 [facility] FINDINGS: Mammographically, the breast tissue is heterogeneously [...] MAMMOGRAM ASSESSMENT: ACR 2 Benign Kirstin Gilmore SKIN SPECIALIST MAMMO Final Result from Last 3 Months or Most Recently Relevant to Health Maintenance Insurance [facility] Advance Directives * Full Code (Latest Code Status on File) Date Activated Date Inactivated Comments 07/16/2015 2:32 PM 07/17/2015 4:03 PM * Full Code Date Activated Date Inactivated Comments 07/16/2015 8:09 AM 07/16/2015 2:32 PM Care Teams Dental Appliance Repairer Relationship Specialty Start Date End Date Adelaide Hebert MD [address] [place] [id number] PCP - General Internal Medicine 07/14/15
[2024-10-09 08:35] VITALS: BP 118/91; PULSE 85; RESP 16; TEMP 36.6; O2SAT 94
[2024-10-09] MEDS: SODIUM CHLORIDE 0.9 % (FLUSH) 10 ML SYRINGE IVF (08:48)
[2024-10-09 08:52] VITALS: BMI 33.5
--- NOTE | 2024-10-09 09:57 | W.PM.H&PU ---
History & Physical Update History & Physical Update H&P Reviewed and patient assessed: No changes noted
[2024-10-09] MEDS: 0.9 % SODIUM CHLORIDE 500 ML 500 ML 100 ML IV (10:00)
[2024-10-09] MEDS: CLINDAMYCIN 900 MG/50 ML-D5W IVPB (10:18)
[2024-10-09] MEDS: BUPIVACAINE 0.25% 30 ML INJECTION (10:25)
[2024-10-09] MEDS: LIDOCAINE 1% MDV 20 ML INJECTION (10:25)
--- NOTE | 2024-10-09 10:45 | P.GSOP_ITS ---
Operative Note Date of procedure: 10/09/24 Pre-op diagnosis: Duct ectasia Post-op diagnosis: Same Type of Procedure: Excision of subareolar breast mass Indications: Patient is a 64-year-old female who presented to clinic with symptomatic nipple discharge. 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 Different treatment options were reviewed including continued observation versus surgical excision. Risks and benefits of operative intervention were discussed at length with the patient. Risks included but was not limited to: Bleeding, infection, risk of damage to surrounding structures, possible need for additional procedures, risk of necrosis to the nipple or surrounding tissue and postoperative complications such as pneumonia, pulmonary emboli or [place]. All questions and concerns were addressed with the patient agreeing to proceed. Procedure Description: Prior to arrival in the operating room, the patient was taken to radiology where a wire was placed to localize the previously placed clip. The wire was localized to the area of duct ectasia associated with the patient's symptoms. The patient was then brought to the operating room where anesthesia was induced. Timeout was confirmed. Local anesthesia was infiltrated into a curvilinear incision in the 11:00 a.m. position at the location of the tip of the wire and at the area of previous incision. Using electrocautery I dissected through the periareolar scar tissue and followed the wire to the subareolar mass of dilated ducts. Care was taken to stay just below the dermis of the areola and nipple. Multiple dilated ducts of about 2 mm in size was found and excised circumferhailey light. With transection of the duct a small amount of chiang brownish fluid came out. The specimen came out with the wire attached. It was painted for orientation and sent for permanent pathology. The wound was then irrigated and all irrigant suctioned from the wound. Additional local anesthesia was infiltrated. The wounds were then closed in layers using absorbable suture, and Dermbond was placed over the wound. The patient was awakened without incident and taken to PACU in stable condition. Sponge, needle and instrument counts were correct x3 at the termination of the case. Findings: Dilated ducts consistent with duct ectasia Anesthesia: MAC Surgeon: Marybel Degroot MD Estimated blood loss (mL): 5 Additional Specimen Information: subareolar breast mass Condition: stable Disposition: PACU
[2024-10-09 10:55] VITALS: BP 114/74; PULSE 76; RESP 16; TEMP 36.4; O2SAT 97
--- NOTE | 2024-10-09 10:56 | W.ANESCHARGE ---
Anesthesia Charges Start Date/Time Anesthesia Start Date: 10/09/24 Anesthesia Start Time: 10:00 Stop Date/Time Anesthesia Stop Date: 10/09/24 Anesthesia Stop Time: 11:00 Coding CPT Codes CPT Codes: ANESTH SKIN EXT/PER/ATRUNK - 35520 ([id number]) P2 - PATIENT W/MILD SYST DISEASE, QK - VESSEL SPECIALIST 2-4 CNCRNT ANES PROC, QX - PARKING INSPECTOR SVC W/ MD MED DIRECTION
--- NOTE | 2024-10-09 10:59 | SUR.OPER ---
Patient stated iodine is okay on her skin
--- NOTE | 2024-10-09 11:07 | W.ANESCHARGE ---
Anesthesia Charges Start Date/Time Anesthesia Start Date: 10/09/24 Anesthesia Start Time: 10:00 Stop Date/Time Anesthesia Stop Date: 10/09/24 Anesthesia Stop Time: 11:00 Coding CPT Codes CPT Codes: ANESTH SKIN EXT/PER/ATRUNK - 50733 ([id number]) P2 - PATIENT W/MILD SYST DISEASE, QK - PLANT BIOLOGY PROFESSOR 2-4 CNCRNT ANES PROC, QX - ORGANIZATIONAL EFFECTIVENESS CONSULTANT SVC W/ MD MED DIRECTION
[2024-10-09 11:11] VITALS: BP 114/67; PULSE 82; RESP 20; O2SAT 96
[2024-10-09 11:15] VITALS: BP 117/80; PULSE 75; RESP 16; O2SAT 96
[2024-10-09 11:30] VITALS: BP 113/77; PULSE 72; RESP 16; O2SAT 97
== END 2024-10-09 12:13 | disposition home or self-care (01) ==
PROVIDERS: PCP Internal Medicine; Visit Provider Surgery
PROC: (CPT 19125; principal; 2024-10-09 09:45)
PROC: (CPT 19125; 2024-10-09 09:45)
DX: N60.42 Mammary duct ectasia of left breast (principal); N64.52 Nipple discharge
CPT/HCPCS: 19125; 00400; 19285; 88307; 88341; 88342; J2003; C1769; J0665; J0736; J1100; J1885; J2250; J2405; J2704; J3010; J3490; J7030

== ENCOUNTER 2025-07-30 07:25 | Outpatient (CLI) | payer MEDICARE, BC, SELFPAY | END 2025-07-30 07:26 | disposition home or self-care (01) | LOC: NFLDREF 08-03 20:27 | PROVIDERS: PCP Internal Medicine; Referring Provider Internal Medicine; Visit Provider Internal Medicine | DX: E78.5 Hyperlipidemia, unspecified (principal); I10 Essential (primary) hypertension | CPT/HCPCS: 80053; 80061 ==